=== PATIENT | male | born 2000 | race American Indian/Alaskan Native ===

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

== ENCOUNTER 2020-03-18 15:31 | Emergency (ER) | payer SELFPAY ==
[2020-03-18] MEDS ORDERED: levETIRAcetam 1000 MG/NS 0.75% 1,000 MG/100 ML BAG IV ONE (16:54)
[2020-03-18] MEDS ORDERED: KETOROLAC 30 MG/1 ML INJ IV ONE (16:54)
[2020-03-18 17:22] LABS: Basophils # (Auto) 0.1 K/mm3 (0.0-0.1); Basophils % (Auto) 0.4 % (0.0-1.8); Eosinophils # (Auto) 0.6 K/mm3 (0.0-0.4); Eosinophils % (Auto) 4.3 % (0.0-4.3); Hematocrit 41.5 % (35.5-45.6); Hemoglobin 13.5 gm/dl (11.8-15.2); Lymphocytes % (Auto) 7.4 % (13.4-35.0); Mean Corpuscular HGB Conc 33 % (32-34); Mean Corpuscular Volume 89 fl (84-94); Monocytes # (Auto) 0.6 K/mm3 (0.0-0.8); Monocytes % (Auto) 4.6 % (0.0-7.3); Platelet Count 176 K/mm3 (140-440); Red Blood Count 4.68 M/mm3 (3.65-5.03); Red Cell Distribution Width 13.2 % (13.2-15.2)
--- NOTE | 2020-03-18 17:29 | Emergency Department Report ---
ED Seizure HPI - General Chief Complaint: Seizure Stated Complaint: SEIZURE Time Seen by Provider: 03/18/20 16:20 Source: patient, EMS Mode of arrival: Stretcher Limitations: No Limitations - History of Present Illness Initial Comments: 20-year-old male with no significant past medical history presents to the hospital after having a seizure at home. Patient states the last thing he remembers is walking in the house and then arriving here in the ED. He apparently currently lives with his parents and girlfriend. Patient complains of a 7/10 global headache since waking up in the hospital. No aggravating or alleviating factors reported he denies blurry vision, tongue laceration/biting, neck pain, recent fever, head injury/concussion, preceding seizure symptoms, drug abuse, alcohol abuse, focal numbness, or focal weakness. Patient was postictal upon arrival and is becoming more alert during ED stay. He admits to mild urinary incontinence EMS EKG normal sinus rhythm with tall T waves rate 93, QTc 0.391sec - Related Data Previous Rx's Medication Instructions Recorded Last Taken Type Amoxicillin [Trimox CAP] 500 mg PO Q8H #30 capsule 07/14/15 Unknown Rx Ibuprofen [Motrin 600 MG tab] 600 mg PO Q8H PRN #30 tablet 07/14/15 Unknown Rx Naproxen [Naprosyn] 500 mg PO BID #20 tablet 09/22/18 Unknown Rx methOCARBAMOL [Robaxin TAB] 500 mg PO Q8HR PRN #20 tablet 09/22/18 Unknown Rx levETIRAcetam [Keppra TAB] 500 mg PO BID #60 tablet 03/18/20 Unknown Rx Allergies Allergy/AdvReac Type Severity Reaction Status Date / Time No Known Allergies Allergy Verified 07/14/15 16:44 ED Review of Systems ROS: Stated complaint: SEIZURE Other details as noted in HPI Comment: All other systems reviewed and negative ED Past Medical Hx - Past Medical History Previous Medical History?: No - Surgical History Past Surgical History?: No - Social History Smoking Status: Never Smoker Substance Use Type: None - Medications Home Medications: Home Medications Medication Instructions Recorded Confirmed Last Taken Type Amoxicillin [Trimox CAP] 500 mg PO Q8H #30 capsule 07/14/15 Unknown Rx Ibuprofen [Motrin 600 MG tab] 600 mg PO Q8H PRN #30 tablet 07/14/15 Unknown Rx Naproxen [Naprosyn] 500 mg PO BID #20 tablet 09/22/18 Unknown Rx methOCARBAMOL [Robaxin TAB] 500 mg PO Q8HR PRN #20 tablet 09/22/18 Unknown Rx levETIRAcetam [Keppra TAB] 500 mg PO BID #60 tablet 03/18/20 Unknown Rx ED Physical Exam - General Limitations: No Limitations - Other Other exam information: General: No acute distress Head: Atraumatic Eyes: normal appearance ENT: Moist mucous membranes, no tongue laceration Neck: Normal appearance, no midline tenderness Chest: Clear to auscultation bilaterally CV: Regular rate and rhythm Abdomen: Soft, normal bowel sounds, nontender, nondistended, no rebound or guarding Back: Normal inspection Extremity: Normal inspection, full range of motion Neuro: Alert O x 3, no facial asymmetry, speech clear, no gross motor sensory deficit Psych: Appropriate behavior Skin: No rash ED Course Vital Signs 03/18/20 03/18/20 03/18/20 16:28 17:05 17:14 Temperature 97.7 F Pulse Rate 78 57 L Respiratory 18 22 Rate Blood Pressure 138/75 123/76 [Left] O2 Sat by Pulse 99 96 Oximetry 03/18/20 18:33 Temperature Pulse Rate 83 Respiratory 18 Rate Blood Pressure 141/73 [Left] O2 Sat by Pulse 97 Oximetry ED Medical Decision Making - Lab Data Result diagrams: 03/18/20 16:38 03/18/20 16:38 Lab Results 03/18/20 03/18/20 03/18/20 Range/Units 16:38 16:38 16:38 WBC 14.1 H (4.5-11.0) K/mm3 RBC 4.68 (3.65-5.03) M/mm3 Hgb 13.5 (11.8-15.2) gm/dl Hct 41.5 (35.5-45.6) % MCV 89 (84-94) fl MCH 29 (28-32) pg MCHC 33 (32-34) % RDW 13.2 (13.2-15.2) % Plt Count 176 (140-440) K/mm3 Lymph % (Auto) 7.4 L (13.4-35.0) % Hoke % (Auto) 4.6 (0.0-7.3) % Eos % (Auto) 4.3 (0.0-4.3) % Baso % (Auto) 0.4 (0.0-1.8) % Lymph # (Auto) 1.0 L (1.2-5.4) K/mm3 Hoke # (Auto) 0.6 (0.0-0.8) K/mm3 Eos # (Auto) 0.6 H (0.0-0.4) K/mm3 Baso # (Auto) 0.1 (0.0-0.1) K/mm3 Seg Neutrophils % 83.3 H (40.0-70.0) % Seg Neutrophils # 11.7 H (1.8-7.7) K/mm3 Sodium 138 (137-145) mmol/L Potassium 4.4 (3.6-5.0) mmol/L Chloride 102.4 (98-107) mmol/L Carbon Dioxide 19 L (22-30) mmol/L Anion Gap 21 mmol/L BUN 11 (9-20) mg/dL Creatinine 1.1 (0.8-1.3) mg/dL Estimated GFR > 60 ml/min BUN/Creatinine Ratio 10 % Glucose 124 H (75-100) mg/dL Calcium 9.4 (8.4-10.2) mg/dL Magnesium 3.10 H (1.7-2.3) mg/dL Total Bilirubin 0.30 (0.1-1.2) mg/dL AST 22 (5-40) units/L ALT 29 (7-56) units/L Alkaline Phosphatase 77 (35-129) units/L Total Protein 7.1 (6.3-8.2) g/dL Albumin 4.5 (3.9-5) g/dL Albumin/Globulin Ratio 1.7 % Plasma/Serum Alcohol < 0.01 (0-0.07) % - EKG Data -: EKG Interpreted by [facility] EKG shows normal: sinus rhythm, intervals (qtc 437), ST-T waves (no stemi) - EKG Data When compared to previous EKG there are: previous EKG unavailable - Radiology Data Radiology results: report reviewed (ct head: naf) - Medical Decision Making Patient in the ED for several hours without further seizure activity. Patient was loaded with Keppra. Labs unremarkable. CT head unremarkable. EKG within normal limits. Patient be discharged home with seizure medications and outpatient neurology follow-up. Advised not to drive Critical Care Time: No Critical care attestation.: If time is entered above; I have spent that time in minutes in the direct care of this critically ill patient, excluding procedure time. ED Disposition Clinical Impression: New onset seizure Disposition: DC-01 TO HOME OR SELFCARE Is pt being admited?: No Does the pt Need Aspirin: No Condition: Stable Instructions: New-Onset Seizure in Adults (ED) Additional Instructions: Take the medication as prescribed. Follow-up with your doctor or doctor/clinic provided. Return if symptoms worsen as indicated by your discharge instructions. Take Motrin as needed for pain. DO NOT DRIVE UNTIL CLEARED BY NEUROLOGIST Prescriptions: levETIRAcetam [Keppra TAB] 500 mg PO BID #60 tablet Referrals: FLASH DE ANDA MD [Primary Care Provider] - 3-5 Days [facility] [Provider Group] - 3-5 Days (primary care clinic) EULALIO CASILLAS MD [Staff Physician] - 3-5 Days (primary care doctor) GUY BAHENA MD [Staff Physician] - 3-5 Days (neurology ) Time of Disposition: 18:53
[2020-03-18 17:32] LABS: Alanine Aminotransferase 29 units/L (7-56); Albumin 4.5 g/dL (3.9-5); BUN/Creatinine Ratio 10; Blood Urea Nitrogen 11 mg/dL (9-20); Calcium 9.4 mg/dL (8.4-10.2); Hemolysis Index 13
--- NOTE | 2020-03-18 17:58 | Cat Scan Report ---
NONENHANCED CT SCAN OF THE HEAD: INDICATION / CLINICAL INFORMATION: 20 years Male; new onset seizure. TECHNIQUE: Routine CT head without contrast. All CT scans at this location are performed using CT dos e reduction for ALARA by means of automated exposure control. COMPARISON: None. FINDINGS: BRAIN / INTRACRANIAL CONTENTS: No acute hemorrhage, mass effect, midline shift, hydrocephalus, or acu te, large territorial infarct. No chronic infarct or focal atrophy. Normal brain volume and ventricul ar/sulcal size for age. No significant white matter abnormality. Given the history of seizures, hippocampi are normal. No space taking lesion is seen in the brain. CRANIOCERVICAL JUNCTION: No significant abnormality. ORBITS: No significant abnormality of visualized orbits. SINUSES / MASTOIDS: No significant abnormality of the visualized paranasal sinuses or mastoid air akbar ls. ADDITIONAL FINDINGS: None. IMPRESSION: Multiplanar nonenhanced CT scan of the brain Signer Name: Colleen García MD Signed: 03/18/2020 5:54 PM Workstation Name: [id number]
[2020-03-18 18:34] VITALS: BP 141/73
[2020-03-18 19:05] LABS: Amphetamine Screen,Urine Negative; Benzodiazepines Screen,Urine Negative; Cocaine Screen,Urine Negative; Methadone Screen,Urine Negative; Opiate Screen,Urine Negative
[2020-03-18 19:29] LABS: Cannabinoid Screen,Urine Positive
== END 2020-03-18 19:39 | disposition home or self-care (01) ==
LOC: ED 15:31
DX: G40.909 Epilepsy, unspecified, not intractable, without status epilepticus (principal); Z79.899 Other long term (current) drug therapy
CPT/HCPCS: 36415; 70450; 80053; 80307; 83735; 85025; 93005; 96374; 96375; 99284; J1885; J1953; 80320; G0480

== ENCOUNTER 2021-05-09 09:12 | Emergency (ER) | payer SELFPAY ==
[2021-05-09] MEDS ORDERED: SODIUM CHLORIDE 0.9% 1000 ML 1,000 ML IV ONE (09:34)
[2021-05-09] MEDS ORDERED: LORazepam 2 MG/ML VIAL IV PRN (09:34)
[2021-05-09] MEDS ORDERED: levETIRAcetam 1000 MG/NS 0.75% 1,000 MG/100 ML BAG IV ONE (09:35)
--- NOTE | 2021-05-09 09:38 | Emergency Department Report ---
ED Seizure HPI - General Chief Complaint: Seizure Stated Complaint: SEIZURE Time Seen by Provider: 05/09/21 09:33 Source: patient, EMS Mode of arrival: Stretcher Limitations: No Limitations - History of Present Illness Initial Comments: Patient presents by ambulance secondary to seizure. He has no recollection of the event. He remembers the paramedics arriving. He cannot answer any questions as far as what happened prior. EMS reports that the patient had a single generalized seizure. There was some question as to whether he had alcohol withdrawal. He is on Keppra for seizures. Patient states that he took it last night. He denies chest pain or back pain. He states that he does have a headache. He has seizures quite frequently. He cannot state whether the Keppra has been helping or not. He denies any antecedent history of head trauma. He has had no antecedent fevers. - Related Data Previous Rx's Medication Instructions Recorded Last Taken Type Amoxicillin [Trimox CAP] 500 mg PO Q8H #30 capsule 07/14/15 Unknown Rx Ibuprofen [Motrin 600 MG tab] 600 mg PO Q8H PRN #30 tablet 07/14/15 Unknown Rx Naproxen [Naprosyn] 500 mg PO BID #20 tablet 09/22/18 Unknown Rx methOCARBAMOL [Robaxin TAB] 500 mg PO Q8HR PRN #20 tablet 09/22/18 Unknown Rx levETIRAcetam [Keppra TAB] 500 mg PO BID #60 tablet 03/18/20 Unknown Rx Allergies Allergy/AdvReac Type Severity Reaction Status Date / Time No Known Allergies Allergy Verified 07/14/15 16:44 ED Review of Systems ROS: Stated complaint: SEIZURE Other details as noted in HPI Comment: All other systems reviewed and negative Constitutional: denies: fever Eyes: denies: vision change ENT: denies: throat pain Respiratory: denies: cough Cardiovascular: denies: chest pain Endocrine: denies: unexplained weight loss Gastrointestinal: denies: abdominal pain Genitourinary: denies: dysuria Musculoskeletal: denies: back pain Skin: denies: rash Neurological: denies: headache Hematological/Lymphatic: denies: easy bruising ED Past Medical Hx - Past Medical History Previous Medical History?: Yes Hx Seizures: Yes - Surgical History Past Surgical History?: No - Family History Family history: no significant - Social History Smoking Status: Never Smoker Substance Use Type: Alcohol, Marijuana - Medications Home Medications: Home Medications Medication Instructions Recorded Confirmed Last Taken Type Amoxicillin [Trimox CAP] 500 mg PO Q8H #30 capsule 07/14/15 Unknown Rx Ibuprofen [Motrin 600 MG tab] 600 mg PO Q8H PRN #30 tablet 07/14/15 Unknown Rx Naproxen [Naprosyn] 500 mg PO BID #20 tablet 09/22/18 Unknown Rx methOCARBAMOL [Robaxin TAB] 500 mg PO Q8HR PRN #20 tablet 09/22/18 Unknown Rx levETIRAcetam [Keppra TAB] 500 mg PO BID #60 tablet 03/18/20 Unknown Rx ED Physical Exam - General Limitations: Altered Mental Status (Postictal), Other (Pulse ox noted and normal) General appearance: alert, in no apparent distress - Head Head exam: Present: atraumatic, normocephalic, normal inspection - Eye Eye exam: Present: normal appearance, EOMI. Absent: scleral icterus - ENT ENT exam: Present: normal orophraynx, normal external ear exam - Neck Neck exam: Present: normal inspection. Absent: meningismus - Respiratory Respiratory exam: Present: normal lung sounds bilaterally. Absent: respiratory distress - Cardiovascular Cardiovascular Exam: Present: regular rate, normal rhythm - GI/Abdominal GI/Abdominal exam: Present: soft. Absent: tenderness - Extremities Exam Extremities exam: Present: normal capillary refill. Absent: calf tenderness - Back Exam Back exam: Absent: CVA tenderness (R), CVA tenderness (L) - Neurological Exam Neurological exam: Present: alert, CN II-XII intact, reflexes normal, other (No pronator drift). Absent: motor sensory deficit - Psychiatric Psychiatric exam: Present: normal affect, normal mood - Skin Skin exam: Present: warm, dry ED Course Vital Signs 05/09/21 05/09/21 05/09/21 09:20 09:21 09:27 Temperature 98.3 F 98.3 F Pulse Rate 92 H 92 H Respiratory 14 14 Rate Blood Pressure 122/78 Blood Pressure 122/78 [Left] O2 Sat by Pulse 100 100 100 Oximetry 05/09/21 05/09/21 09:31 10:01 Temperature Pulse Rate 86 59 L Respiratory 20 11 L Rate Blood Pressure 107/61 118/64 Blood Pressure [Left] O2 Sat by Pulse 98 100 Oximetry - Reevaluation(s) Reevaluation #1: 05/09/21 09:38 IV labs ordered. Old records reviewed. She is precautions started. Reevaluation #2: 05/09/21 11:01 Labs are noted and the patient was discharged ED Medical Decision Making - Lab Data Result diagrams: 05/09/21 09:57 05/09/21 09:57 Rhythm strip: Normal sinus rhythm without ectopy. Monitor observe 10 seconds. - Medical Decision Making Patient presents secondary to seizure. This was not witnessed by us. He is not postictal at this time. There was some question as to whether he was in alcohol withdrawal, but he is not hypertensive, tachycardic, or tremulous. There is no electrolyte derangement that would be consistent with alcohol withdrawal. He did have an elevated potassium, but he does not have evidence of renal injury. I believe this was related to hemolysis and actually not indicative of true hyperkalemia. Regardless, he has been hydrated. There is no evidence of dysrhythmia or ectopy based on the EKG rhythm strip. Patient will be continued on his regular medication and discharged. Critical Care Time: No Critical care attestation.: If time is entered above; I have spent that time in minutes in the direct care of this critically ill patient, excluding procedure time. ED Disposition Clinical Impression: Breakthrough seizure Disposition: 01 HOME / SELF CARE / HOMELESS Is pt being admited?: No Condition: Stable Instructions: Seizure, Adult, [id number] Additional Instructions: Continue to take your regular medication. Push fluids. Return for problems. Follow-up with your regular doctor for recheck. Referrals: FLASH DE ANDA MD [Primary Care Provider] - 3-5 Days ANAMARIA BYNUM MD [Staff Physician] - 3-5 Days
[2021-05-09 10:27] LABS: Hemoglobin 13.7 gm/dl (11.8-15.2); Mean Corpuscular HGB Conc 32 % (32-34); Mean Corpuscular Volume 89 fl (84-94); Platelet Count 186 K/mm3 (140-440); Red Blood Count 4.85 M/mm3 (3.65-5.03)
[2021-05-09 10:37] LABS: Alanine Aminotransferase 34 units/L (7-56); Albumin 4.9 g/dL (3.9-5); BUN/Creatinine Ratio 11; Blood Urea Nitrogen 10 mg/dL (9-20); Calcium 9.7 mg/dL (8.4-10.2); Hemolysis Index 37
[2021-05-09 11:18] VITALS: BP 136/84
== END 2021-05-09 11:47 | disposition home or self-care (01) ==
LOC: ED 09:12
DX: R56.9 Unspecified convulsions (principal); F12.90 Cannabis use, unspecified, uncomplicated; Z72.89 Other problems related to lifestyle; Z79.899 Other long term (current) drug therapy
CPT/HCPCS: 36415; 80053; 83735; 85027; 96365; 96366; 99284; J1953; J7030; Q0162

== ENCOUNTER 2021-05-25 07:23 | Emergency (ER) | payer SELFPAY ==
[2021-05-25 07:48] VITALS: BP 125/60
--- NOTE | 2021-05-25 08:51 | Emergency Department Report ---
ED General Adult HPI - General Chief complaint: Recheck/Abnormal Lab/Rx Stated complaint: MEDICATION REFILL Time Seen by Provider: 05/25/21 08:10 Source: patient Mode of arrival: Ambulatory Limitations: No Limitations - History of Present Illness Initial comments: 21-year-old male with known history of seizure disorders presents to the ER today requesting a refill on his Keppra. Patient states that he has been out of his Keppra for about 1 week. He states that currently he does not have insurance and is unable to follow-up with a primary care doctor to get refills on his medication. He states that he typically goes to the emergency room to get his refills. He states that he did feel like he was about to have a seizure this morning but did not go into full-blown seizure and so that scared him and brought him into the ER to get refills on his meds. He states that he thinks he takes Keppra 1000 mg twice a day, he states that he was taking it 500 mg twice a day but he remembers after having a seizure a few weeks ago it was increased to thousand twice a day but he is not exactly sure what hospital he went to and when it was increased. Complaint: Need refill on Keppra;hx of seizure -: week(s) (1) - Related Data Previous Rx's Medication Instructions Recorded Last Taken Type Amoxicillin [Trimox CAP] 500 mg PO Q8H #30 capsule 07/14/15 Unknown Rx Ibuprofen [Motrin 600 MG tab] 600 mg PO Q8H PRN #30 tablet 07/14/15 Unknown Rx Naproxen [Naprosyn] 500 mg PO BID #20 tablet 09/22/18 Unknown Rx methOCARBAMOL [Robaxin TAB] 500 mg PO Q8HR PRN #20 tablet 09/22/18 Unknown Rx levETIRAcetam [Keppra TAB] 1,000 mg PO BID #60 tab 05/25/21 Unknown Rx Allergies Allergy/AdvReac Type Severity Reaction Status Date / Time No Known Allergies Allergy Verified 07/14/15 16:44 ED Review of Systems ROS: Stated complaint: MEDICATION REFILL Other details as noted in HPI Comment: All other systems reviewed and negative Constitutional: denies: chills, fever Eyes: denies: eye pain, eye discharge, vision change ENT: denies: ear pain, throat pain Respiratory: denies: cough, shortness of breath, SOB with exertion, SOB at rest, wheezing Cardiovascular: denies: chest pain, palpitations, dyspnea on exertion, edema, syncope, paroxysmal nocturnal dyspnea Endocrine: no symptoms reported Gastrointestinal: denies: abdominal pain, nausea, diarrhea, constipation, hematemesis, melena, hematochezia Genitourinary: denies: urgency, dysuria, frequency, hematuria, discharge, testicular pain, testicular mass Musculoskeletal: denies: back pain, joint swelling, arthralgia Skin: denies: rash, lesions, change in color, change in hair/nails, pruritus Neurological: denies: headache, weakness, numbness, paresthesias, confusion, abnormal gait, vertigo Psychiatric: denies: anxiety, depression, auditory hallucinations, visual hallucinations, homicidal thoughts, suicidal thoughts Hematological/Lymphatic: denies: easy bleeding, easy bruising ED Past Medical Hx - Past Medical History Previous Medical History?: Yes Hx Seizures: Yes - Surgical History Past Surgical History?: No - Social History Smoking Status: Never Smoker Substance Use Type: Alcohol, Marijuana - Medications Home Medications: Home Medications Medication Instructions Recorded Confirmed Last Taken Type Amoxicillin [Trimox CAP] 500 mg PO Q8H #30 capsule 07/14/15 Unknown Rx Ibuprofen [Motrin 600 MG tab] 600 mg PO Q8H PRN #30 tablet 07/14/15 Unknown Rx Naproxen [Naprosyn] 500 mg PO BID #20 tablet 09/22/18 Unknown Rx methOCARBAMOL [Robaxin TAB] 500 mg PO Q8HR PRN #20 tablet 09/22/18 Unknown Rx levETIRAcetam [Keppra TAB] 1,000 mg PO BID #60 tab 05/25/21 Unknown Rx ED Physical Exam - General Limitations: No Limitations General appearance: alert, in no apparent distress - Head Head exam: Present: atraumatic, normocephalic, normal inspection - Eye Eye exam: Present: normal appearance, PERRL, EOMI Pupils: Present: normal accommodation - Neck Neck exam: Present: normal inspection, full ROM - Respiratory Respiratory exam: Present: normal lung sounds bilaterally. Absent: respiratory distress, wheezes, rales, rhonchi, stridor - Cardiovascular Cardiovascular Exam: Present: regular rate, normal rhythm, normal heart sounds - GI/Abdominal GI/Abdominal exam: Present: soft. Absent: distended, tenderness, guarding, rebound - Neurological Exam Neurological exam: Present: alert, oriented X3, CN II-XII intact, normal gait - Psychiatric Psychiatric exam: Present: normal affect, normal mood - Skin Skin exam: Present: intact ED Course Vital Signs 05/25/21 07:45 Temperature 98.2 F Pulse Rate 56 L Respiratory 16 Rate Blood Pressure 125/60 [Left] O2 Sat by Pulse 100 Oximetry ED Medical Decision Making - Medical Decision Making 21-year-old male with known history of seizure disorders presents to the ER today requesting a refill on his Keppra. Patient states that he has been out of his Keppra for about 1 week. He states that currently he does not have insurance and is unable to follow-up with a primary care doctor to get refills on his medication. He states that he typically goes to the emergency room to get his refills. He states that he did feel like he was about to have a seizure this morning but did not go into full-blown seizure and so that scared him and brought him into the ER to get refills on his meds. He states that he thinks he takes Keppra 1000 mg twice a day, he states that he was taking it 500 mg twice a day but he remembers after having a seizure a few weeks ago it was increased to thousand twice a day but he is not exactly sure what hospital he went to and when it was increased. 1024: Patient is well appearing, he is not toxic or ill appearing. He is awake, alert and orient x 3. He is neurologically intact. His VS stable. He is not in any acute distress. Patient be given referral times medication. He will be given a referral to a primary care doctor until he can get established for continued refills on his meds. At this time there is no indication for any testing. Patient stable at time of discharge. Critical care attestation.: If time is entered above; I have spent that time in minutes in the direct care of this critically ill patient, excluding procedure time. ED Disposition Clinical Impression: Medication refill, History of seizures Disposition: HOME / SELF CARE / HOMELESS Is pt being admited?: No Does the pt Need Aspirin: No Condition: Stable Instructions: Medicine Refill at the Emergency Department, Seizure, Adult Additional Instructions: I recommend that you get the Keppra prescription filled and start taking it as p rescribed. I do recommend that you try to establish with a primary care doctor to continue giving the patient refills on your medications. Return to the ER if anything changes or worsens Prescriptions: levETIRAcetam [Keppra TAB] 1,000 mg PO BID #60 tab Referrals: PRIMARY CAREMD [Primary Care Provider] - 3-5 Days EULALIO CASILLAS MD [Staff Physician] - 3-5 Days Time of Disposition: 10:11
[2021-05-25] MEDS ORDERED: levETIRAcetam 500 MG TAB PO ONE (09:18)
== END 2021-05-25 10:49 | disposition home or self-care (01) ==
LOC: ED 07:23
DX: Z76.0 Encounter for issue of repeat prescription (principal); F12.90 Cannabis use, unspecified, uncomplicated
CPT/HCPCS: 99282

== ENCOUNTER 2021-07-02 15:31 | Emergency (ER) | payer SELFPAY ==
--- NOTE | 2021-07-02 17:25 | Emergency Department Report ---
ED Recheck HPI - General Chief Complaint: Recheck/Abnormal Lab/Rx Stated Complaint: SEIZURE/MEDICATION REFILL Time Seen by Provider: 07/02/21 17:22 Source: patient Mode of arrival: Ambulatory Limitations: No Limitations - History of Present Illness Initial Comments: 21-year-old black male with a history of seizure disorders presents to the emergency room for request for refill of anti-seizure medication. He states that he takes Keppra 1000 mg twice a day and ran out of medication 2 days ago. He states that he thinks he may have had a seizure yesterday. He is without complaints at this time. Complaint: medication refill request -: Sudden Returns Today for: request for prescription Context: ran out of medication Associated Symptoms: none. denies: chest pain, shortness of breath, abdominal pain - Related Data Previous Rx's Medication Instructions Recorded Last Taken Type Amoxicillin [Trimox CAP] 500 mg PO Q8H #30 capsule 07/14/15 Unknown Rx Ibuprofen [Motrin 600 MG tab] 600 mg PO Q8H PRN #30 tablet 07/14/15 Unknown Rx Naproxen [Naprosyn] 500 mg PO BID #20 tablet 09/22/18 Unknown Rx methOCARBAMOL [Robaxin TAB] 500 mg PO Q8HR PRN #20 tablet 09/22/18 Unknown Rx levETIRAcetam [Keppra TAB] 1,000 mg PO BID #60 tab 05/25/21 Unknown Rx levETIRAcetam [Keppra] 1,000 mg PO BID 30 Days #60 tab 07/02/21 Unknown Rx Allergies Allergy/AdvReac Type Severity Reaction Status Date / Time No Known Allergies Allergy Verified 07/14/15 16:44 ED Review of Systems ROS: Stated complaint: SEIZURE/MEDICATION REFILL Other details as noted in HPI Comment: All other systems reviewed and negative Constitutional: denies: no symptoms reported Respiratory: denies: no symptoms reported, shortness of breath Cardiovascular: denies: chest pain, palpitations, dyspnea on exertion, syncope, paroxysmal nocturnal dyspnea Endocrine: no symptoms reported Gastrointestinal: denies: abdominal pain, nausea, vomiting, diarrhea Genitourinary: denies: urgency, dysuria, frequency Musculoskeletal: denies: back pain Skin: denies: rash Neurological: denies: headache, weakness, numbness, confusion, abnormal gait, vertigo Psychiatric: denies: anxiety, depression ED Past Medical Hx - Past Medical History Previous Medical History?: Yes Hx Seizures: Yes - Surgical History Past Surgical History?: No - Social History Smoking Status: Never Smoker Substance Use Type: Alcohol, Marijuana - Medications Home Medications: Home Medications Medication Instructions Recorded Confirmed Last Taken Type Amoxicillin [Trimox CAP] 500 mg PO Q8H #30 capsule 07/14/15 Unknown Rx Ibuprofen [Motrin 600 MG tab] 600 mg PO Q8H PRN #30 tablet 07/14/15 Unknown Rx Naproxen [Naprosyn] 500 mg PO BID #20 tablet 09/22/18 Unknown Rx methOCARBAMOL [Robaxin TAB] 500 mg PO Q8HR PRN #20 tablet 09/22/18 Unknown Rx levETIRAcetam [Keppra TAB] 1,000 mg PO BID #60 tab 05/25/21 Unknown Rx levETIRAcetam [Keppra] 1,000 mg PO BID 30 Days #60 tab 07/02/21 Unknown Rx ED Physical Exam - General General appearance: alert, in no apparent distress - Head Head exam: Present: atraumatic, normocephalic - Eye Eye exam: Present: normal appearance. Absent: conjunctival injection - Neck Neck exam: Present: normal inspection - Respiratory Respiratory exam: Present: normal lung sounds bilaterally. Absent: respiratory distress - Cardiovascular Cardiovascular Exam: Present: bradycardia, normal heart sounds - GI/Abdominal GI/Abdominal exam: Present: soft, normal bowel sounds. Absent: distended, tenderness, guarding - Extremities Exam Extremities exam: Present: normal inspection - Back Exam Back exam: Present: normal inspection - Neurological Exam Neurological exam: Present: alert, oriented X3, normal gait - Psychiatric Psychiatric exam: Present: normal affect, normal mood - Skin Skin exam: Present: warm, dry, intact ED Course Vital Signs 07/02/21 07/02/21 16:36 17:31 Temperature 98.3 F 98.0 F Pulse Rate 58 L 88 Respiratory 16 14 Rate Blood Pressure 137/75 [Left] Blood Pressure 140/88 [Right] O2 Sat by Pulse 100 98 Oximetry ED Recheck MDM - Medical Decision Making 21-year-old black male with a history of seizure disorders presents to the emergency room for request for refill of anti-seizure medication. He states that he takes Keppra 1000 mg twice a day and ran out of medication 2 days ago. He states that he thinks he may have had a seizure yesterday. He is without complaints at this time. Patient was given 1 month refill of Keppra 1000 mg p.o. BID. He was encouraged to follow-up with neurology for further evaluation. He said that he did not have a neurologist at this time, so he was given a referral to a neurologist to follow-up with. Patient is without complaints of at this time and he will be discharged home to follow-up with neurology for further management. He verbalized understanding of and agreement with plan of care. Critical Care Time: No Critical care attestation.: If time is entered above; I have spent that time in minutes in the direct care of this critically ill patient, excluding procedure time. ED Disposition Clinical Impression: Medication refill Disposition: 01 HOME / SELF CARE / HOMELESS Is pt being admited?: No Does the pt Need Aspirin: No Condition: Stable Instructions: Levetiracetam tablets Additional Instructions: Take medications as prescribed. Follow up with neurology. Prescriptions: levETIRAcetam [Keppra] 1,000 mg PO BID 30 Days #60 tab Referrals: PRIMARY CARE, [Primary Care Provider] - 3-5 Days Forms: Work/School Release Form(ED) Time of Disposition: 17:24
[2021-07-02 17:34] VITALS: BP 140/88
== END 2021-07-02 17:45 | disposition home or self-care (01) ==
LOC: ED 15:31
DX: G40.911 Epilepsy, unspecified, intractable, with status epilepticus (principal); Z76.0 Encounter for issue of repeat prescription; F10.20 Alcohol dependence, uncomplicated; F12.90 Cannabis use, unspecified, uncomplicated
CPT/HCPCS: 99282

== ENCOUNTER 2021-07-31 07:21 | Emergency (ER) | payer SELFPAY ==
[2021-07-31 08:04] VITALS: BP 123/70
--- NOTE | 2021-07-31 08:23 | Emergency Department Report ---
ED Recheck HPI - General Chief Complaint: Recheck/Abnormal Lab/Rx Stated Complaint: OUT OF MEDICATION Time Seen by Provider: 07/31/21 08:14 Source: patient Mode of arrival: Ambulatory Limitations: No Limitations - History of Present Illness Initial Comments: 21-year-old black male with a past medical history of seizure disorders presents to the emergency department with request for medication refill. He states that he was recently incarcerated, lost his insurance, then ran out of his Keppra 2 days ago and will not be able to see his primary care provider in the next few weeks secondary to loss of insurance. He denies any symptoms. Complaint: medication refill request Returns Today for: request for prescription Context: ran out of medication Associated Symptoms: none - Related Data Previous Rx's Medication Instructions Recorded Last Taken Type Amoxicillin [Trimox CAP] 500 mg PO Q8H #30 capsule 07/14/15 Unknown Rx Ibuprofen [Motrin 600 MG tab] 600 mg PO Q8H PRN #30 tablet 07/14/15 Unknown Rx Naproxen [Naprosyn] 500 mg PO BID #20 tablet 09/22/18 Unknown Rx methOCARBAMOL [Robaxin TAB] 500 mg PO Q8HR PRN #20 tablet 09/22/18 Unknown Rx levETIRAcetam [Keppra TAB] 1,000 mg PO BID #60 tab 05/25/21 Unknown Rx levETIRAcetam [Keppra] 1,000 mg PO BID 30 Days #60 tab 07/02/21 Unknown Rx levETIRAcetam [Keppra TAB] 1,000 mg PO BID #60 tab 07/31/21 Unknown Rx Allergies Allergy/AdvReac Type Severity Reaction Status Date / Time No Known Allergies Allergy Verified 07/14/15 16:44 ED Review of Systems ROS: Stated complaint: OUT OF MEDICATION Other details as noted in HPI Comment: All other systems reviewed and negative Constitutional: denies: chills, fever Eyes: denies: eye pain, eye discharge ENT: denies: ear pain, dental pain Respiratory: denies: cough, shortness of breath Cardiovascular: denies: chest pain, palpitations, dyspnea on exertion Endocrine: no symptoms reported Gastrointestinal: denies: abdominal pain, nausea, vomiting Genitourinary: denies: urgency, dysuria Musculoskeletal: denies: back pain Skin: denies: rash, lesions, change in color Neurological: denies: headache, weakness, numbness, paresthesias, confusion, abnormal gait, vertigo Psychiatric: denies: anxiety, depression Hematological/Lymphatic: denies: easy bleeding, easy bruising ED Past Medical Hx - Past Medical History Hx Seizures: Yes - Social History Smoking Status: Never Smoker Substance Use Type: Alcohol, Marijuana - Medications Home Medications: Home Medications Medication Instructions Recorded Confirmed Last Taken Type Amoxicillin [Trimox CAP] 500 mg PO Q8H #30 capsule 07/14/15 Unknown Rx Ibuprofen [Motrin 600 MG tab] 600 mg PO Q8H PRN #30 tablet 07/14/15 Unknown Rx Naproxen [Naprosyn] 500 mg PO BID #20 tablet 09/22/18 Unknown Rx methOCARBAMOL [Robaxin TAB] 500 mg PO Q8HR PRN #20 tablet 09/22/18 Unknown Rx levETIRAcetam [Keppra TAB] 1,000 mg PO BID #60 tab 05/25/21 Unknown Rx levETIRAcetam [Keppra] 1,000 mg PO BID 30 Days #60 tab 07/02/21 Unknown Rx levETIRAcetam [Keppra TAB] 1,000 mg PO BID #60 tab 07/31/21 Unknown Rx ED Physical Exam - General Limitations: No Limitations General appearance: alert, in no apparent distress - Head Head exam: Present: atraumatic, normocephalic - Eye Eye exam: Present: normal appearance. Absent: conjunctival injection - Neck Neck exam: Present: normal inspection - Respiratory Respiratory exam: Present: normal lung sounds bilaterally. Absent: respiratory distress, wheezes, rales, rhonchi, stridor, chest wall tenderness - Cardiovascular Cardiovascular Exam: Present: regular rate, normal heart sounds - GI/Abdominal GI/Abdominal exam: Present: soft, normal bowel sounds. Absent: distended, tenderness, guarding, rebound, rigid - Extremities Exam Extremities exam: Present: normal inspection - Back Exam Back exam: Present: normal inspection. Absent: CVA tenderness (R), CVA tenderness (L) - Neurological Exam Neurological exam: Present: alert, oriented X3 - Psychiatric Psychiatric exam: Present: normal affect, normal mood - Skin Skin exam: Present: warm, dry, intact, normal color ED Course Vital Signs 07/31/21 08:01 Temperature 98.5 F Pulse Rate 61 Respiratory 16 Rate Blood Pressure 123/70 [Left] O2 Sat by Pulse 100 Oximetry ED Recheck MDM - Medical Decision Making 21-year-old black male with a past medical history of seizure disorders presents to the emergency department with request for medication refill. He states that he was recently incarcerated, lost his insurance, then ran out of his Keppra 2 days ago and will not be able to see his primary care provider in the next few weeks secondary to loss of insurance. He denies any symptoms. Prescription for Keppra was refilled for patient, and it was noted on his chart that he had prescription refill for Keppra last month also. He was encouraged that he needed to follow-up with primary care provider because ER would be unable to continue to feel Keppra prescriptions. He was given outpatient resources that did not require insurance. He denies any complaints of at this time. Plan of care reviewed with patient, and he verbalized understanding of and agreement with. Critical care attestation.: If time is entered above; I have spent that time in minutes in the direct care of this critically ill patient, excluding procedure time. ED Disposition Clinical Impression: Medication refill Disposition: 01 HOME / SELF CARE / HOMELESS Is pt being admited?: No Does the pt Need Aspirin: No Condition: Stable Instructions: Levetiracetam tablets Additional Instructions: Take medication as prescribed. Follow-up with primary care provider for management and further evaluation. Prescriptions: levETIRAcetam [Keppra TAB] 1,000 mg PO BID #60 tab Referrals: [facility] [Outside] - 3-5 Days [facility] [Outside] - 3-5 Days [facility] [place] [facility] [place] - 3-5 Days Forms: Work/School Release Form(ED) Time of Disposition: 08:22
== END 2021-07-31 08:47 | disposition home or self-care (01) ==
LOC: ED 07:21
DX: G40.911 Epilepsy, unspecified, intractable, with status epilepticus (principal); Z76.0 Encounter for issue of repeat prescription; F10.20 Alcohol dependence, uncomplicated; F12.90 Cannabis use, unspecified, uncomplicated
CPT/HCPCS: 99282